=== PATIENT | female | born 1925 | race Caucasian/White ===

== ENCOUNTER 2016-08-19 09:01 | Emergency (ER) | payer MEDICARE, OTHER ==
[~2016-08-19] VITALS: Ht 157.5 cm; Wt 68.0 kg
[~2016-08-19 09:01] MED LIST: DARV PO; METF-324 PO; MIRA33502 PO; NAUSEA MED; PRED20 PO; STOOL SOFTNER OTC
[2016-08-19 09:04] VITALS: BP 142/67; PULSE 106; RESP 20; TEMP 97.9; O2SAT 94
[2016-08-19 09:59] LABS: AUTOMATED NEUTROPHIL # 12.5 TH/MM3 (1.8-7.7); BASOPHIL % 0.3 % (0.0-2.0); EOSINOPHIL % 0.1 % (0.0-4.0); HEMATOCRIT 41.9 % (35.0-46.0); HEMO FLAGS DIFF FINAL; LYMPH % 9.6 % (9.0-44.0); LYMPHOCYTE # 1.5 TH/MM3 (1.0-4.8); MEAN CELL VOLUME 88.6 FL (80.0-100.0); MEAN CORPUSCULAR HEMOGLOBIN 28.8 PG (27.0-34.0); MEAN CORPUSCULAR HGB CONC 32.5 % (32.0-36.0); MONO % 10.8 % (0.0-8.0); NEUT % 79.2 % (16.0-70.0); PLATELET COUNT 441 TH/MM3 (150-450); RED BLOOD COUNT 4.73 MIL/MM3 (4.00-5.30); RED CELL DISTRIBUTION WIDTH 14.9 % (11.6-17.2); WHITE BLOOD COUNT 15.7 TH/MM3 (4.0-11.0)
[2016-08-19 10:10] LABS: ALT (GPT) 19 U/L (10-53); ANION GAP 7 MEQ/L (5-15); AST (GOT) 13 U/L (15-37); BICARBONATE 28.7 MEQ/L (21.0-32.0); BLOOD UREA NITROGEN 17 MG/DL (7-18); CHLORIDE 100 MEQ/L (98-107); GLOMERULAR FILTRATION RATE 73 ML/MIN (>89); POTASSIUM 4.1 MEQ/L (3.5-5.1); SODIUM (NA) 136 MEQ/L (136-145); URIC ACID 3.4 MG/DL (2.6-6.0)
[2016-08-19 10:13] LABS: ALKALINE PHOSPHATASE 82 U/L (45-117)
--- NOTE | 2016-08-19 10:29 | PD ---
HPI Chief Complaint: Injury Time Seen by Provider: 09:35 Travel History International Travel<30 days: No Contact w/Intl Traveler<30days: No Traveled to known affect area: No History of Present Illness HPI 89-year-old woman presents to the emergency department complaining of pain in the right foot. She states that 2 days ago her shelving unit in her pain she grades way and she dropped something on her foot. She states it did not hurt initially. She then developed pain and redness in the foot and ankle. Symptoms have gotten progressively worse and she is unable to walk on it. 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 She called her daughter to come get her. States she feels like she couldn't get back up because of foot was hurting. She has been feeling generally weak for some time. No other recent illness or injury. No other complaints. No history of gout. She has had cellulitis in the foot one time before. History Past Medical History Narrative Medical Diabetes History of pelvic cancer, treated with chemotherapy several years ago Urinary incontinence Social History Alcohol Use: No Tobacco Use: No Allergies-Medications (Allergen,Severity, Reaction): Coded Allergies: Iodine (Verified Allergy, Unknown, 08/19/16) Seafood (Verified Allergy, Unknown, 08/19/16) Reported Meds & Prescriptions Reported Meds & Active Scripts Active Reported [Thyroid Pill ] 1 Tab PO DAILY Metformin (Metformin HCl) 500 Mg Tab 500 Mg PO BIDPC With meals Zithromax Z-Ketan (Azithromycin) 250 Mg Dspk 250 Mg PO DIRECTED 500 MG (2 tabs) day 1, then 1 tab days 2-5. Colace (Docusate Sodium) 100 Mg Cap 100 Mg PO DAILY Wcdtodmrnx-Irgawmomvrkdq-Uahilapi 50-325-40 Mg Tab 1 Tab PO DAILY PRN Do not exceed 6 tablets/day. Aspirin 325 Mg Tab 325 Mg PO HS Review of Systems Except as stated in HPI: all other systems reviewed are Neg Physical Exam Narrative GENERAL: Well-appearing 89-year-old woman, no acute distress. SKIN: Warm and dry. CARDIOVASCULAR: Regular rate and rhythm. No murmur appreciated. RESPIRATORY: No accessory muscle use. Clear to auscultation. Breath sounds equal bilaterally. GASTROINTESTINAL: Abdomen soft, non-tender, nondistended. Hepatic and splenic margins not palpable. MUSCULOSKELETAL: No obvious deformities. The right foot has erythema redness and warmth about the first MTP joint. There is a lot of tenderness to light touch. Some pain over the dorsum of the foot as well. The ankle appears normal. Good pulses in the right foot. Brisk capillary refill. NEUROLOGICAL: Awake and alert. No obvious cranial nerve deficits. Motor grossly within normal limits. Normal speech. PSYCHIATRIC: Appropriate mood and affect; insight and judgment normal. Data Data Last Documented VS Vital Signs Date Time Temp Pulse Resp B/P Pulse Ox O2 Delivery O2 Flow Rate FiO2 08/19/16 09:04 97.9 106 20 142/67 94 Room Air Orders Foot, Complete ([id number]) (08/19/16 ) Ankle, Complete ([id number]) (08/19/16 ) Complete Blood Count With Diff (08/19/16 09:35) Comprehensive Metabolic Panel (08/19/16 09:35) Westergren Sedimentation Rate (08/19/16 09:35) C-Reactive Protein (Crp) (08/19/16 09:35) Uric Acid (08/19/16 09:35) Iv Access Insert/Monitor (08/19/16 09:35) Labs Laboratory Tests Test 08/19/16 09:40 White Blood Count 15.7 TH/MM3 Red Blood Count 4.73 MIL/MM3 Hemoglobin 13.6 GM/DL Hematocrit 41.9 % Mean Corpuscular Volume 88.6 FL Mean Corpuscular Hemoglobin 28.8 PG Mean Corpuscular Hemoglobin 32.5 % Concent Red Cell Distribution Width 14.9 % Platelet Count 441 TH/MM3 Mean Platelet Volume 7.3 FL Neutrophils (%) (Auto) 79.2 % Lymphocytes (%) (Auto) 9.6 % Monocytes (%) (Auto) 10.8 % Eosinophils (%) (Auto) 0.1 % Basophils (%) (Auto) 0.3 % Neutrophils # (Auto) 12.5 TH/MM3 Lymphocytes # (Auto) 1.5 TH/MM3 Monocytes # (Auto) 1.7 TH/MM3 Eosinophils # (Auto) 0.0 TH/MM3 Basophils # (Auto) 0.0 TH/MM3 CBC Comment DIFF FINAL Differential Comment Erythrocyte Sedimentation Rate 24 mm/hr Sodium Level 136 MEQ/L Potassium Level 4.1 MEQ/L Chloride Level 100 MEQ/L Carbon Dioxide Level 28.7 MEQ/L Anion Gap 7 MEQ/L Blood Urea Nitrogen 17 MG/DL Creatinine 0.75 MG/DL Estimat Glomerular Filtration 73 ML/MIN Rate Random Glucose 218 MG/DL Uric Acid 3.4 MG/DL Calcium Level 9.2 MG/DL Total Bilirubin 1.0 MG/DL Aspartate Amino Transf 13 U/L (AST/SGOT) Alanine Aminotransferase 19 U/L (ALT/SGPT) Alkaline Phosphatase 82 U/L C-Reactive Protein 10.00 MG/DL Total Protein 8.3 GM/DL Albumin 3.6 GM/DL [facility] Medical Decision Making Medical Screen Exam Complete: Yes Emergency Medical Condition: Yes Interpretation(s) X-rays: Soft tissue swelling, no fracture LABS: CBC remarkable for mild leukocytosis. Sedimentation rate 24 CRP 10 CMP unremarkable, glucose 218 Uric acid 3.4 Differential Diagnosis Foot injury, infection, gout, other Narrative Course Medical decision making INITIAL: Is an 89-year-old woman who presents to the emergency department complaining of pain and redness to the right foot. She attributes this to a injury from a can falling on the foot. However the patient did not happen initially and developed over time, and she has erythema redness and warmth on the foot. I think she likely has gout of the first MTP joint. We'll check labs , x-ray, reassess. FINAL: I think the most likely finished for the patient's symptoms is gout. I don't think there is no infection there. Patient was counseled about the risk of infection and to return for any infectious signs or symptoms. We'll give NSAIDs, opiates, outpatient follow-up. Diagnosis Primary Impression: Gout Qualified Code: M10.9 - Acute gout involving toe, unspecified cause, unspecified laterality Additional Instructions: Take Naprosyn as prescribed. Use Lortab if needed for severe pain. Use caution as this can cause unsteadiness, contribute to falls, and cause constipation. Follow-up with her primary doctor in 1-2 days. Return to emergency department for any worsening redness, fevers, or any other new or worsening symptoms. Med/Other Pt SpecificInfo: Prescription(s) given Scripts Hydrocodone-Acetaminophen (Lortab)5-325 Mg Tab1 Tab PO Q6H PRN (PAIN) #12 TAB Prov:Cruzito Cross MD 08/19/16 Naproxen (Naprosyn)250 Mg [id number] Mg PO BID #14 TAB Prov:Cruzito Cross MD 08/19/16 Disposition: 01 DISCHARGE HOME Condition: Stable Cruzito Cross MD Aug 19, 2016 09:42
[2016-08-19] MEDS ORDERED: ZITHTAB PO (10:30)
[2016-08-19] MEDS ORDERED: BUTATAB6 PO (10:30)
[2016-08-19] MEDS ORDERED: ASPI325T PO (10:30)
[2016-08-19] MEDS ORDERED: COLA100C3 PO (10:30)
--- NOTE | 2016-08-19 10:55 | RADRPT ---
EXAM DATE/TIME: 08/19/2016 09:53 [facility] COMPARISON: No previous studies available for comparison. INDICATIONS: Dropped can on right foot and ankle three days ago, pain and swelling on anterior surface of foot and ankle MEDICAL HISTORY: None. SURGICAL HISTORY: None. ENCOUNTER: Initial ACUITY: 3 days PAIN SCORE: 10/10 LOCATION: Right ankle FINDINGS: There is soft tissue swelling of the lateral malleolus. Medial malleolus is intact. Bone density, a lignment is anatomic, fracture is not appreciated. Moderate vascular calcifications are noted. CONCLUSION: Soft tissue swelling without fracture. Fernie Ledesma MD FACR on August 19, 2016 at 10:43 Board Certified Radiologist. This report was verified electronically.
--- NOTE | 2016-08-19 10:56 | RADRPT ---
EXAM DATE/TIME: 08/19/2016 09:56 [facility] COMPARISON: No previous studies available for comparison. INDICATIONS: Dropped can on right foot and ankle three days ago, pain and swelling on anterior surface of foot and ankle MEDICAL HISTORY: None. SURGICAL HISTORY: None. ENCOUNTER: Initial ACUITY: 3 days PAIN SCORE: 10/10 LOCATION: Right foot FINDINGS: There is generalized soft tissue swelling over the dorsum of the foot. Alignment is anatomic. Fract ure is not appreciated. CONCLUSION: Soft tissue swelling otherwise negative. Fernie Ledesma MD FACR on August 19, 2016 at 10:43 Board Certified Radiologist. This report was verified electronically.
[2016-08-19] MEDS ORDERED: THYROID PILL PO (11:30)
[2016-08-19] MEDS ORDERED: METF500T PO (11:30)
[2016-08-19] MEDS ORDERED: NAPR250T57 PO (11:44)
[2016-08-19] MEDS ORDERED: HYDR-3533 PO (11:44)
[2016-08-19] MEDS ORDERED: ACETAMINOPHEN/HYDROcodone 325 MG/5 MG TAB PO ONE (11:45)
[2016-08-19] MEDS ORDERED: NAPROXEN 500 MG TAB PO ONE (11:45)
[2016-08-19 12:04] VITALS: BP 177/73; PULSE 92; RESP 20; O2SAT 95
[2016-08-19] MEDS ORDERED: ZOFR4TAB3 SL (12:10)
== END 2016-08-19 12:20 | disposition home or self-care (01) ==
LOC: NEPA 09:01
DX: M10.9 Gout, unspecified (principal); E11.9 Type 2 diabetes mellitus without complications
CPT/HCPCS: 73610; 73630; 80053; 84550; 85025; 85652; 86140; 99283